=== PATIENT | male | born 1985 | race Caucasian/White ===

== ENCOUNTER 2018-03-20 19:07 | Emergency (ER) | END 2018-03-20 23:37 | disposition home or self-care (01) ==

== ENCOUNTER 2019-05-01 16:27 | Emergency (ER) | payer SELFPAY ==
[~2019-05-01] VITALS: Ht 177.8 cm; Wt 107.0 kg
[~2019-05-01 16:27] MED LIST: ACET325T33 PO; IBUP-1561 PO
[2019-05-01 16:31] VITALS: BP 153/68; PULSE 101; RESP 18; Ht 177.8 cm; Wt 107.0 kg
[2019-05-01] MEDS ORDERED: KETOROLAC 60 MG INJ IM STA (17:15)
[2019-05-01] MEDS ORDERED: IBUP-1544 PO (17:19)
[2019-05-01] MEDS ORDERED: SULF1TAB31 PO (17:19)
[2019-05-01] MEDS ORDERED: CEPH-443 PO (17:19)
--- NOTE | 2019-05-01 19:27 | ERD ---
ER Documentation Chief Complaint Chief Complaint Pt with insect bite to L lower extremity X 3 days ago. no fever HPI History of Present Illness: 33-year-old male who denies a past medical history coming in today due to possible insect bite. Patient reports that he noticed redness and swelling to left lower extremity approximately 3 days ago but did not feel anything bite him. Patient denies fever, chills. At home pharmacological/nonpharmacological treatment for symptoms: Denies Denies social concerns; Denies recent foreign travel ROS All systems reviewed and are negative except as per history of present illness. Medications Home Meds Active Scripts Ibuprofen* (Ibuprofen*) 800 Mg Tablet, 800 MG PO Q6H PRN for INFLAMMATION/SWELLING/PAIN, #30 TAB Prov:DIEGO DELGADO V [employer] 05/01/19 Sulfamethoxazole/Trimethoprim* (Bactrim Ds* Tablet) 1 Each Tablet, 1 TAB PO BID for LEG INFECTION/CELLULITIS for 7 Days, #14 TAB Prov:DIEGO DELGADO [employer] 05/01/19 Cephalexin* (Keflex*) 500 Mg Capsule, 500 MG PO Q6 for LEG INFECTION/CELLULITIS for 7 Days, #28 CAP Prov:DIEGO DELGADO [employer] 05/01/19 Acetaminophen* (Tylenol*) 325 Mg Tablet, 2 TAB PO Q6 PRN for PAIN AND OR ELEVATED TEMP, #20 TAB Prov:LINN BARAHONA MD 03/20/18 Ibuprofen* (Motrin*) 400 Mg Tab, 400 MG PO Q8, #30 TAB Prov:LINN BARAHONA MD 03/20/18 Allergies Allergies: Coded Allergies: No Known Drug Allergies (Verified Allergy, Unknown, 05/01/19) PMhx/Soc Medical and Surgical Hx: pt denies Medical Hx, pt denies Surgical Hx Anesthesia Reaction: No Hx Neurological Disorder: No Hx Respiratory Disorders: No Hx Cardiac Disorders: No Hx Psychiatric Problems: No Hx Miscellaneous Medical Probl: No Hx Alcohol Use: No Hx Substance Use: No Hx Tobacco Use: No Smoking Status: Never smoker FmHx Family History: No diabetes, No coronary disease Physical Exam Vitals Vital Signs Date Temp Pulse Resp B/P (MAP) Pulse Ox O2 O2 Flow FiO2 Time Delivery Rate 05/01/19 99.1 101 18 153/68 97 16:31 (96) Physical Exam Const: No acute distress, afebrile Head: Atraumatic Eyes: Normal Conjunctiva ENT: Normal External Ears, Nose and Mouth. Neck: Full range of motion. No meningismus. Resp: Clear to auscultation bilaterally Cardio: Regular rate and rhythm, no murmurs Abd: Soft, non tender, non distended. No guarding, no masses, no rigidity Skin: No petechiae or rashes Back: No midline or flank tenderness Ext: No cyanosis, or edema; LLE: 1.5 inch area of cellulitis noted to be with erythema, no purulent drainage, mild induration, no fluctuance; paronychia noted to finger of right hand, no warmth, no erythema, mild swelling Neur: Awake and alert x3, speaking in clear sentences, no focal deficits or facial asymmetry Psych: Normal Mood and Affect Results 24 hrs Current Medications Medications Dose Sig/Kacey Start Time Status Last (Trade) Ordered Route PRN Stop Time Admin Dose Reason Admin Ketorolac 60 mg ONCE STAT 05/01/19 DC 05/01/19 Tromethamine IM 17:15 17:22 (Toradol) 05/01/19 17:16 Procedures/MDM ED COURSE: ED course includes a thorough examination and history. The patient was stable throughout ED course. I kept the patient and/or family informed of laboratory and diagnostic imaging results throughout the ED course. LABS: None MEDICATIONS GIVEN IN ER: Ketorolac. No adverse reactions reported. DIAGNOSTIC IMAGING: None PROCEDURES: None. MEDICAL DECISION MAKING: Low suspicion for life-threatening medical emergency. Low suspicion for need for incision and drainage at this time. Low suspicion for need of IV or IM antibiotics. Otherwise healthy patient presenting with constellation of symptoms likely representing abscess/cellulitis as characterized by history, physical exam findings. Patient reassessment @ 1730: Patient refusing nail removal for paronychia. patient hemodynamically stable. No respiratory distress, otherwise relatively well appearing and nontoxic. Disposition given. Patient educated on diagnoses, prescriptions, follow-up care, return precautions. Strict return precautions given for worsening condition; questions answered discharge. Patient verbalizes understanding of discharge instructions. PRESCRIPTIONS FOR HOME: Ibuprofen, cephalexin, Bactrim DISPOSITION: DISCHARGE At this time, patient is stable for discharge and outpatient management. I have instructed the patient to follow-up with his/her primary care physician in 1-2 days. I have discussed with the patient the possibility of needing to see a specialist for further workup and imaging studies if symptoms persist. I have instructed the patient to promptly return to the ER for any new or worsening symptoms including increased pain, fever, nausea, vomiting, weakness or LOC. The patient and/or family expressed understanding of and agreement with this plan. All questions were answered. Home care instructions were provided. DISCLAIMER: Inadvertent spelling and grammatical errors are likely due to EHR/dictation software use and do not reflect on the overall quality of patient care. Also, please note that the electronic time recorded on this note does not necessarily reflect the actual time of the patient encounter. Departure Diagnosis: Primary Impression: Paronychia of finger Additional Impression: Cellulitis of leg, left Condition: Stable Patient Instructions: Cellulitis, Paronychia Referrals: [facility] YOU HAVE RECEIVED A MEDICAL SCREENING EXAM AND THE RESULTS INDICATE THAT YOU DO NOT HAVE A CONDITION THAT REQUIRES URGENT TREATMENT IN THE EMERGENCY DEPARTMENT. FURTHER EVALUATION AND TREATMENT OF YOUR CONDITION CAN WAIT UNTIL YOU ARE SEEN IN YOUR DOCTORS OFFICE WITHIN THE NEXT 1-2 DAYS. IT IS YOUR RESPONSIBILITY TO MAKE AN APPOINTMENT FOR FOLOW-UP CARE. IF YOU HAVE A PRIMARY DOCTOR --you should call your primary doctor and schedule an appointment IF YOU DO NOT HAVE A PRIMARY DOCTOR YOU CAN CALL OUR PHYSICIAN REFERRAL HOTLINE AT IF YOU CAN NOT AFFORD TO SEE A PHYSICIAN YOU CAN CHOSE FROM THE FOLLOWING [facility] [address] [facility]. [facility] [place] [address] [facility] [facility] [address] [facility] [address] [facility] [address] [facility]. [facility]. [address] [facility]. [facility] YOU HAVE RECEIVED A MEDICAL SCREENING EXAM AND THE RESULTS INDICATE THAT YOU DO NOT HAVE A CONDITION THAT REQUIRES URGENT TREATMENT IN THE EMERGENCY DEPARTMENT. FURTHER EVALUATION AND TREATMENT OF YOUR CONDITION CAN WAIT UNTIL YOU ARE SEEN IN YOUR DOCTORS OFFICE WITHIN THE NEXT 1-2 DAYS. IT IS YOUR RESPONSIBILITY TO MAKE AN APPOINTMENT FOR FOLOW-UP CARE. IF YOU HAVE A PRIMARY DOCTOR --you should call your primary doctor and schedule and appointment IF YOU DO NOT HAVE A PRIMARY DOCTOR YOU CAN CALL OUR PHYSICIAN REFERRAL HOTLINE AT . IF YOU CAN NOT AFFORD TO SEE A PHYSICIAN YOU CAN CHOSE FROM THE FOLLOWING [facility] INSTITUTIONS: [id number] [place] [address] [facility] [address] [place] [address] [facility] [address] [place] [address] Additional Instructions: Thank you very much for allowing us to participate in your care. Your health and safety is our top priority at [facility]. It is important to read all discharge instructions and education provided in your discharge packet. *You will need a wound recheck after 2 to 3 days of being on the antibiotics to ensure proper healing. I have given you referrals to local clinics where you can seek care. If you are unable to get a wound check at 1 of the clinics, you may return to emergency department* Call your primary care doctor TOMORROW for an appointment during the next 2-4 days and bring all the information and medications prescribed. Have prescriptions filled and follow precisely the directions on the label. -Cephalexin and sulfathiazole/trimethaphan are antibiotics; take this medication every day as listed on your prescription. You must complete the entire course of treatment that is listed on your prescription this is very important because it takes a certain number of days to kill the bacteria that is causing the infection. -Ibuprofen is a medication that will help with pain/inflammation. At the dosage of 600 to 800 mg, this will help with inflammation/swelling. Take this medication as prescribed. If the symptoms get worse and your provider is unavailable, return to the Emergency Department immediately. DIEGO DELGADO NP May 01, 2019 19:27
== END 2019-05-01 17:44 | disposition home or self-care (01) ==
LOC: FTE 16:27
DX: L03.011 Cellulitis of right finger (principal); L03.116 Cellulitis of left lower limb
CPT/HCPCS: 96372; 99284; J1885